=== PATIENT | male | born 1975 | race Caucasian/White ===

== ENCOUNTER 2023-09-21 18:46 | Inpatient (IN) ==
[2023-09-21] MEDS: ACETAMINOPHEN 1,000 MG/100 ML BAG IV ONE (20:28)
[2023-09-21] MEDS: 0.9 % SODIUM CHLORIDE 1,000 ML IV ONE (20:31)
[2023-09-21 20:32] LABS: Basophils # (Auto) 0.05 K/mcL (0.00-0.30); Basophils % (Auto) 0.2 % (0.0-2.0); Eosinophils # (Auto) 0.06 K/mcL (0.00-0.70); Eosinophils % (Auto) 0.2 % (0.0-7.0); Hematocrit 45.6 % (40.1-51.0); Hemoglobin 15.6 g/dL (13.7-17.5); Lymphocytes # (Auto) 1.53 K/mcL (1.50-4.80); Mean Cell Volume 96.2 fL (80.0-100.0); Mean Corpuscular HGB Conc 34.2 g/dL (31.0-36.0); Mean Platelet Volume 9.4 fL (8.8-12.5); Monocytes # (Auto) 1.68 K/mcL (0.10-0.90); Monocytes % (Auto) 6.6 % (1.0-12.0); Neutrophils % (Auto) 86.7 % (38.0-78.0); Platelet Count 224 K/mcL (140-440); RBC 4.74 M/mcL (4.63-6.08); WBC 25.5 K/mcL (4.5-11.0)
[2023-09-21 20:52] LABS: ALT/SGPT 20 U/L (<40); AST/SGOT 17 U/L (<40); Albumin/Globulin Ratio 1.1 (1.0-2.3); Alkaline Phosphatase 63 U/L (39-117); Bilirubin,Total 0.6 mg/dL (0.1-1.0); Blood Urea Nitrogen 14 mg/dL (6-20); Calcium 9.1 mg/dL (8.6-10.4); Carbon Dioxide 23 mmol/L (22-30); Chloride 98 mmol/L (96-108); Globulin 3.6 gm/dL (2.2-3.7); Glomerular Filtration Rate 102; Glucose 138 mg/dL (70-105)
[2023-09-21] MEDS: cefTRIAXone 2 GM in DEXTROSE 5% IN WATER 50 ML IV ONE (21:03)
[2023-09-21 22:08] LABS: Appearance,Urine Clear (Clear); Bacteria,Urine 0 /hpf (0); Bilirubin,Urine Non-reportable mg/dL (Negative); Color,Urine Yellow; Culture Indicated,Urine No; Glucose,Urine (UA) 100 mg/dL (Negative); Ketones,Urine Negative (Negative); Leukocyte Esterase,Urine Negative /uL (Negative); Nitrate,Urine Negative (Negative); PH,Urine 6.5 (5.0-9.0); Protein,Urine 30 mg/dL (Negative); Urine Blood Trace-intact ery/mcL (Negative); Urine RBC 1 /hpf (0-3); Urine Squamous Epithelial Cell 0 /hpf (0-4); Urine WBC 1 /hpf (0-4); Urobilinogen,Urine >=8.0 mg/dL
[2023-09-21] MEDS ORDERED: NICOTINE POLACRILEX 2 MG GUM CHEW/PARK PRN (23:47)
[2023-09-22] MEDS: HYDROcodone/APAP 5/325MG TABLET PO PRN (00:12)
[2023-09-22] MEDS: HYDROcodone/APAP 5/325MG TABLET PO ONE ×2 (00:13→08:06)
[2023-09-22] MEDS: ceFAZolin 1 GM VIAL ONE (00:13)
[2023-09-22] MEDS: ceFAZolin 1 GM VIAL IV SCH (00:13)
[2023-09-22] MEDS: LACTATED RINGERS 1,000 ML IV SCH (00:13)
[2023-09-22] MEDS: VANCOMYCIN PER PHARMACY IV ONE (00:42)
[2023-09-22] MEDS: NICOTINE 21 MG PATCH ONE (00:54)
[2023-09-22] MEDS: VANCOMYCIN 1,500 MG in 0.9 % SODIUM CHLORIDE 500 ML IV ONE (00:54)
[2023-09-22] MEDS: NICOTINE 21 MG PATCH TOPICAL SCH (00:54)
[2023-09-22] MEDS: 0.9 % SODIUM CHLORIDE 10 ML SYRINGE IV SCH (08:04)
[2023-09-22] MEDS: HYDROmorphone 0.5 MG/0.5 ML SYRINGE IV PRN (08:11)
[2023-09-22] MEDS: DOCUSATE SODIUM 100 MG CAPSULE PO SCH (08:15)
[2023-09-22] MEDS ORDERED: VANCOMYCIN PER PHARMACY IV SCH (08:30)
[2023-09-22 09:08] LABS: Basophils # (Auto) 0.09 K/mcL (0.00-0.30); Basophils % (Auto) 0.5 % (0.0-2.0); Eosinophils # (Auto) 0.13 K/mcL (0.00-0.70); Eosinophils % (Auto) 0.7 % (0.0-7.0); Hemoglobin 13.8 g/dL (13.7-17.5); Lymphocytes # (Auto) 1.81 K/mcL (1.50-4.80); Lymphocytes % (Auto) 9.5 % (15.5-49.0); Mean Cell Volume 96.9 fL (80.0-100.0); Mean Corpuscular HGB Conc 33.7 g/dL (31.0-36.0); Mean Platelet Volume 10.4 fL (8.8-12.5); Monocytes % (Auto) 7.3 % (1.0-12.0); Neutrophils % (Auto) 81.5 % (38.0-78.0); Platelet Count 189 K/mcL (140-440); RBC 4.23 M/mcL (4.63-6.08); Red Cell Distribution Width 12.4 % (11.5-14.5); WBC 19.1 K/mcL (4.5-11.0)
[2023-09-22] MEDS: cefTRIAXone 2 GM in DEXTROSE 5% IN WATER 50 ML IV SCH (09:50)
[2023-09-22] MEDS: VANCOMYCIN 1,500 MG in 0.9 % SODIUM CHLORIDE 500 ML IV SCH (10:24)
[2023-09-22] MEDS: ACETAMINOPHEN 500 MG TABLET PO PRN (12:03)
[2023-09-22] MEDS: 0.9 % SODIUM CHLORIDE 1,000 ML IV ONE (12:10)
[2023-09-22] MEDS: 0.9 % SODIUM CHLORIDE 1,000 ML IV SCH ×2 (13:25→15:50)
[2023-09-22] MEDS: SENNOSIDES 1 TABLET PO SCH (21:32)
[2023-09-22] MEDS: MELATONIN 3 MG TABLET PO PRN (22:05)
[2023-09-23 07:30] LABS: Basophils # (Auto) 0.07 K/mcL (0.00-0.30); Basophils % (Auto) 0.5 % (0.0-2.0); Eosinophils # (Auto) 0.37 K/mcL (0.00-0.70); Eosinophils % (Auto) 2.6 % (0.0-7.0); Hematocrit 39.6 % (40.1-51.0); Hemoglobin 13.3 g/dL (13.7-17.5); Lymphocytes # (Auto) 1.29 K/mcL (1.50-4.80); Lymphocytes % (Auto) 9.1 % (15.5-49.0); Mean Cell Volume 98.5 fL (80.0-100.0); Mean Corpuscular HGB Conc 33.6 g/dL (31.0-36.0); Mean Platelet Volume 9.7 fL (8.8-12.5); Monocytes # (Auto) 1.03 K/mcL (0.10-0.90); Monocytes % (Auto) 7.3 % (1.0-12.0); Neutrophils % (Auto) 80.4 % (38.0-78.0); Platelet Count 189 K/mcL (140-440); RBC 4.02 M/mcL (4.63-6.08); WBC 14.1 K/mcL (4.5-11.0)
[2023-09-23 10:13] LABS: Basophils # (Auto) 0.06 K/mcL (0.00-0.30); Basophils % (Auto) 0.4 % (0.0-2.0); Eosinophils # (Auto) 0.31 K/mcL (0.00-0.70); Eosinophils % (Auto) 2.1 % (0.0-7.0); Hematocrit 41.1 % (40.1-51.0); Hemoglobin 13.6 g/dL (13.7-17.5); Lymphocytes # (Auto) 1.68 K/mcL (1.50-4.80); Lymphocytes % (Auto) 11.6 % (15.5-49.0); Mean Cell Volume 100.2 fL (80.0-100.0); Mean Corpuscular HGB Conc 33.1 g/dL (31.0-36.0); Monocytes # (Auto) 1.05 K/mcL (0.10-0.90); Monocytes % (Auto) 7.3 % (1.0-12.0); Neutrophils % (Auto) 78.5 % (38.0-78.0); Platelet Count 185 K/mcL (140-440); Red Cell Distribution Width 11.9 % (11.5-14.5); WBC 14.5 K/mcL (4.5-11.0)
[2023-09-23] MEDS ORDERED: PROPOFOL 200 MG/20 ML VIAL IV ONE (11:29)
[2023-09-23] MEDS ORDERED: DEXAMETHASONE 10 MG/ML VIAL ONE (11:29)
[2023-09-23] MEDS ORDERED: ONDANSETRON 4 MG/2 ML VIAL ONE (11:29)
[2023-09-23] MEDS ORDERED: LIDOCAINE 2% PF 5 ML VIAL ONE (11:29)
[2023-09-23] MEDS ORDERED: HYDROmorphone 1 MG/ML SYRINGE ONE (11:30)
[2023-09-23] MEDS ORDERED: MAGNESIUM SULFATE 2 GM/50 ML BAG IV ONE (12:00)
[2023-09-23] MEDS: VANCOMYCIN 1 GM VIAL TOPICAL SCH (12:01)
[2023-09-23] MEDS ORDERED: IPRATROPIUM/ALBUTEROL 3 ML AMPUL.NEB NEB PRN (12:07)
[2023-09-23] MEDS ORDERED: ONDANSETRON 4 MG/2 ML VIAL IV PRN (12:07)
[2023-09-23] MEDS: KETOROLAC 30 MG/ML VIAL IV ONE (12:41)
[2023-09-23] MEDS: LACTATED RINGERS 1,000 ML IV SCH (14:37)
[2023-09-24 06:29] LABS: Basophils # (Auto) 0.05 K/mcL (0.00-0.30); Basophils % (Auto) 0.7 % (0.0-2.0); Eosinophils # (Auto) 0.44 K/mcL (0.00-0.70); Eosinophils % (Auto) 5.8 % (0.0-7.0); Hematocrit 40.1 % (40.1-51.0); Lymphocytes # (Auto) 1.56 K/mcL (1.50-4.80); Lymphocytes % (Auto) 20.4 % (15.5-49.0); Mean Cell Volume 102.8 fL (80.0-100.0); Mean Corpuscular HGB Conc 32.4 g/dL (31.0-36.0); Mean Platelet Volume 9.4 fL (8.8-12.5); Monocytes # (Auto) 0.72 K/mcL (0.10-0.90); Monocytes % (Auto) 9.4 % (1.0-12.0); Neutrophils % (Auto) 63.4 % (38.0-78.0); Platelet Count 187 K/mcL (140-440); WBC 7.6 K/mcL (4.5-11.0)
[2023-09-24 06:43] LABS: ALT/SGPT 18 U/L (<40); AST/SGOT 20 U/L (<40); Alkaline Phosphatase 46 U/L (39-117); Bilirubin,Direct < 0.2 mg/dL (0-0.3); Bilirubin,Total 0.3 mg/dL (0.1-1.0); Blood Urea Nitrogen 13 mg/dL (6-20); Calcium 8.4 mg/dL (8.6-10.4); Carbon Dioxide 27 mmol/L (22-30); Chloride 103 mmol/L (96-108); Globulin 3.1 gm/dL (2.2-3.7); Glomerular Filtration Rate 107; Glucose 100 mg/dL (70-105); Lactate Dehydrogenase 135 U/L (135-225); Phosphorous 4.1 mg/dL (2.5-4.5); Triglycerides 66 mg/dL (<150); Uric Acid 3.2 mg/dL (2.5-8.0)
[2023-09-25] MEDS: HYDROmorphone 0.5 MG/0.5 ML SYRINGE IV PRN (08:22)
[2023-09-26 06:32] LABS: Basophils # (Auto) 0.08 K/mcL (0.00-0.30); Basophils % (Auto) 1.1 % (0.0-2.0); Eosinophils # (Auto) 0.44 K/mcL (0.00-0.70); Eosinophils % (Auto) 5.8 % (0.0-7.0); Hematocrit 44.4 % (40.1-51.0); Hemoglobin 14.9 g/dL (13.7-17.5); Lymphocytes # (Auto) 1.96 K/mcL (1.50-4.80); Lymphocytes % (Auto) 25.8 % (15.5-49.0); Mean Corpuscular HGB Conc 33.6 g/dL (31.0-36.0); Mean Platelet Volume 8.7 fL (8.8-12.5); Monocytes # (Auto) 0.71 K/mcL (0.10-0.90); Monocytes % (Auto) 9.4 % (1.0-12.0); Neutrophils % (Auto) 57.6 % (38.0-78.0); Platelet Count 236 K/mcL (140-440); RBC 4.53 M/mcL (4.63-6.08); Red Cell Distribution Width 11.7 % (11.5-14.5); WBC 7.6 K/mcL (4.5-11.0)
[2023-09-26 06:41] LABS: ALT/SGPT 25 U/L (<40); AST/SGOT 21 U/L (<40); Albumin 3.5 gm/dL (3.2-5.2); Albumin/Globulin Ratio 1.1 (1.0-2.3); Alkaline Phosphatase 51 U/L (39-117); Bilirubin,Total 0.2 mg/dL (0.1-1.0); Blood Urea Nitrogen 15 mg/dL (6-20); Calcium 9.1 mg/dL (8.6-10.4); Carbon Dioxide 27 mmol/L (22-30); Chloride 103 mmol/L (96-108); Globulin 3.3 gm/dL (2.2-3.7); Glomerular Filtration Rate 102; Glucose 103 mg/dL (70-105)
[2023-09-26] MEDS: ONDANSETRON 4 MG/2 ML VIAL IV PRN (09:26)
== END 2023-09-26 13:50 | disposition home or self-care (01) | DRG 854 ==
LOC: ED 18:46 → MEDSUR 23:04
PROVIDERS: ADMIT Internal Medicine; ATTEND Internal Medicine